=== PATIENT | female | born 1995 | race Caucasian/White ===

== ENCOUNTER 2020-07-09 15:50 | Inpatient (IN) | payer OTHER ==
--- NOTE | 2020-07-09 18:00 | HP ---
Past Medical History - Primary Care Physician PCP:: Kristie Cameron ([facility]) - Admission Chief Complaint: none History of Present Illness: pt. seen in [facility] today for PNC appointment. noted to have elevated [id number] so sent to L&D for evaluation. denies CHAVEZ, visual disturbances, epigastric pain. no contractions, leaking or bleeding. +FM PNC signif for late registrant History Source: Patient Limitations to Obtaining History: Language Barrier (emergency medical technician phone used) - Past Medical History Gastrointestinal: Yes: Other (? umbilical hernia) ...: 2 ...Para: 1 - Past Surgical History Hx Myomectomy: No Hx Transabdominal Cerclage: No - Smoking History Smoking history: Never smoked Have you smoked in the past 12 months: No - Alcohol/Substance Use Hx Alcohol Use: No History of Substance Use: reports: None Home Medications - Allergies Allergies/Adverse Reactions: Allergies Allergy/AdvReac Type Severity Reaction Status Date / Time No Known Allergies Allergy Verified 07/09/20 17:59 Review of Systems Findings/Remarks: no complaints Physical Exam - Maternity Constitutional: Yes: Well Nourished, No Distress, Anxious (pt seems anxious sinc e arrival about possiblity of delivery (MD in clinic told her she may be induced because of blood pressure)) Cardiovascular: Yes: WNL Lungs: Clear to auscultation - Abdominal Exam/OB Fundal Height: 37 (7.5 lbs clinical efw) Number of Fetuses: Single Presentation: Vertex Contractions: No Monitor Mode: External Heart Rate (range): 130 Accelerations: Uniform Decelerations: None - Vaginal Exam/OB Vaginal Bleeding: No Speculum Exam: No Dilatation (cm): cl/l/p Presentation: Vertex/Position (bedside sono confirmed) - Labs Lab Results: O pos rubella immune vdrl nr hbsag nr hiv neg quantiferon neg gc neg chl neg gct 109 Problem List - Problems (1) Hypertension complicating in third trimester Problems reviewed: Yes Code(s): O16.3 - UNSPECIFIED MATERNAL HYPERTENSION, THIRD TRIMESTER Assessment/Plan iup at 37 weeks (by late sono, late registrant) with asymptomatic elev BP today in clinic sent to L&D for further evaluation and labs, etc. pt. appears anxious regarding possible induction nurse attempted to reassure using phone translation will get labs and serial BPs and review case with covering MD consignee to determine management plan. addendum BP 140s/80s at this time (transiently elevated at time nurse interviewing her) check serial BPs , closely monitor. bloodwork ok. 2+ protein on u/a bedside sono confirm vtx d/w Dr. Leone impression iup at term w suspected mild preeclampsia cervidil placed
[2020-07-09] MEDS ORDERED: DEXTROSE 5%-LACTATED RINGERS 1,000 ML IV SCH (18:15)
[2020-07-09 18:39] VITALS: BMI 32.1
[2020-07-09 19:37] LABS: BASO % 0.6 % (0-2.0); EOS % 0.1 % (0-4.5); HEMATOCRIT 34.9 % (32.4-45.2); HEMOGLOBIN 11.5 GM/dL (10.7-15.3); LYMPH % 34.6 % (8-40); MCH 29.1 pg (25.7-33.7); MCHC 32.9 g/dl (32.0-36.0); MEAN CELL VOLUME 88.6 fl (80-96); MEAN PLT VOLUME 8.9 fl (7.5-11.1); MONO % 5.2 % (3.8-10.2); NEUT % 59.5 % (42.8-82.8); PLATELET COUNT 194 K/MM3 (134-434); RBC 3.94 M/mm3 (3.60-5.2); RDW 15.9 % (11.6-15.6); RETICULOCYTES 1.29 % (0.5-1.5); WHITE BLOOD COUNT 7.3 K/mm3 (4.0-10.0)
[2020-07-09 19:42] LABS: INR 0.89 (0.83-1.09); PROTHROMBIN TIME (PATIENT) 10.5 SEC (9.7-13.0)
[2020-07-09 19:44] LABS: ACTIVATED PTT 27.9 SECONDS (25.2-36.5)
[2020-07-09 19:59] LABS: EPI CELLS >36 /uL (0-25.1); HYALINE CASTS 3 /uL (0-3.1); URINE APPEARANCE CLOUDY; URINE BACTERIA 3759 /uL (0-1359); URINE BILIRUBIN NEGATIVE (NEGATIVE); URINE COLOR YELLOW; URINE GLUCOSE (UA) NEGATIVE (NEGATIVE); URINE KETONE NEGATIVE (NEGATIVE); URINE LEUK ESTERASE 2+ (NEGATIVE); URINE NITRITE NEGATIVE (NEGATIVE); URINE PROTEIN 2+ (NEGATIVE); URINE RBC 9 /uL (0-23.9); URINE WBC 466 /uL (0-25.8)
[2020-07-09 20:02] LABS: ALBUMIN 2.6 g/dl (3.4-5.0); BILIRUBIN,TOTAL 0.2 mg/dL (0.2-1); BLOOD UREA NITROGEN 8.8 mg/dL (7-18); CALCIUM 8.4 mg/dL (8.5-10.1); CREATININE 0.6 mg/dL (0.55-1.3); POTASSIUM 4.5 mmol/L (3.5-5.1); TOT PROT 6.4 g/dl (6.4-8.2); URIC ACID 5.2 mg/dL (2.6-7.2)
[2020-07-09] MEDS ORDERED: DINOPROSTONE 10 MG VAGINAL SUPPOSITORY VG ONE (20:13)
[2020-07-09] MEDS ORDERED: MAGNESIUM SULFATE 20GM/500ML - 20 GM/500 ML INFUS.BAG ONE (23:45)
[2020-07-09] MEDS ORDERED: MAGNESIUM 4GM/H20 - 4 GM/100 ML IVPB IVPB ONE (23:45)
[2020-07-10] MEDS ORDERED: LABETALOL HCL 5 MG/1 ML (100MG/20 ML VIAL) ONE (00:19)
[2020-07-10] MEDS ORDERED: FENTANYL/BUPIVACAINE/NS/PF - PCEA - 50 ML DISP.SYRIN EP ONE (00:27)
[2020-07-10] MEDS ORDERED: PCA PUMP NR ONE (00:27)
[2020-07-10] MEDS ORDERED: BUPIVACAINE HCL/PF 0.25% (2.5MG/ML) 10 ML VIAL ONE ×2 (00:29→01:31)
[2020-07-10] MEDS: FENTANYL/BUPIVACAINE/NS/PF - PCEA - 50 ML DISP.SYRIN EP SCH (00:40)
[2020-07-10] MEDS ORDERED: AMPICILLIN - 2 GM in SODIUM CHLORIDE 100 ML IVPB ONE (00:55)
[2020-07-10] MEDS ORDERED: NALOXONE HCL 0.4 MG/ML VIAL IVPUSH PRN (00:55)
--- NOTE | 2020-07-10 00:55 | PN ---
Progress Note (short form) - Note Progress Note: IUP @ 37w5 by dates ,IOL for preeclampsia Called by nurse with elevated BP. Magnesium 4gm bolus then 2 gm/hr BP-161/102,172/99,190/121, Repeat after IV labatelol- 141/96 Will consider starting PO labetolol VE- 3cm/50%/0, cervidil removed,intact FHR 140, moderate variability, positive accelerations, no decelerations, cat1 Purcell- q1-3 min labatelol 20mg IV push x1 given Epidural for pain management Ampicillin for GBS prophylaxis anticipate vaginal delivery Mag level q 6hrs
[2020-07-10] MEDS ORDERED: AMPICILLIN SODIUM 2 GM VIAL ONE ×2 (01:01→04:42)
[2020-07-10] MEDS ORDERED: LABETALOL HCL 200 MG TABLET (FP) ONE ×3 (01:01→22:09)
[2020-07-10] MEDS ORDERED: LABETALOL HCL 200 MG TABLET (FP) PO ONE (01:09)
[2020-07-10] MEDS: OXYTOCIN 20 UNITS in 0.9% NS 20 UNIT/1,000 ML INFUS.BAG IV SCH ×2 (01:36→21:05)
[2020-07-10] MEDS ORDERED: OXYTOCIN 20 UNITS in 0.9% NS 20 UNIT/1,000 ML INFUS.BAG IV ONE ×4 (01:36→21:07)
[2020-07-10] MEDS ORDERED: LIDOCAINE HCL 1% PRESERVATIVE FREE - 30ML VIAL ONE (01:48)
--- NOTE | 2020-07-10 02:11 | PN ---
Delivery - Delivery Type of Anesthesia: Local, Epidural Episiotomy/Laceration: None EBL (cc): 300 Delivery, Single - Stages of Labor Date of Delivery: 07/10/20 Date Placenta Delivered: 07/10/20 Placenta: Yes: Spontaneous - Condition of Infant Gender: Male - Feeding Plan Initial Plan: Exclusive throughout hospitalization Remarks - Remarks Remarks: Patient progressed from 3 cm to full dilation. 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 cord clamped and cut by me, cord gases sent, cord blood sent. Pitocin started.First degree midline perineal laceration repaired with 2.0 vicryl. Hemostasis confirmed. continue magnesium sulfate. Monitor BP closely
[2020-07-10] MEDS ORDERED: BISACODYL 10 MG SUPP.RECT RC PRN (02:12)
[2020-07-10] MEDS ORDERED: BENZOCAINE 28 GM HEMORRHOIDAL OINTMENT TP PRN (02:12)
[2020-07-10] MEDS ORDERED: WITCH HAZEL 50% (TUCKS) 40 PAD/JAR PAD TP PRN (02:12)
[2020-07-10] MEDS ORDERED: BENZOCAINE 20% 57 GM BOTTLE TP PRN (02:12)
[2020-07-10] MEDS ORDERED: ACETAMINOPHEN 1000 MG/100 ML VIAL (NON FORMULARY) IVPB ONE (02:14)
[2020-07-10] MEDS ORDERED: LABETALOL HCL 5 MG/1 ML (100MG/20 ML VIAL) IVPUSH ONE (02:22)
[2020-07-10] MEDS ORDERED: MAGNESIUM SULFATE 20GM/500ML - 20 GM/500 ML INFUS.BAG IVPB SCH ×2 (02:30→06:20)
[2020-07-10] MEDS ORDERED: MAGNESIUM 4GM/H20 - 4 GM/100 ML IVPB IVPB SCH (02:30)
[2020-07-10] MEDS ORDERED: ACETAMINOPHEN 325 MG TABLET (FP) PO ONE (02:45)
[2020-07-10] MEDS ORDERED: oxyCODONE HCL 5 MG TABLET PO ONE (02:45)
[2020-07-10] MEDS: AMPICILLIN - 1 GM in SODIUM CHLORIDE 100 ML IVPB SCH ×3 (06:10→17:26)
[2020-07-10] MEDS ORDERED: ACETAMINOPHEN 325 MG TABLET (FP) ONE ×2 (07:25→16:50)
[2020-07-10] MEDS: ACETAMINOPHEN 325 MG TABLET (FP) PO PRN ×2 (07:40→17:00)
[2020-07-10] MEDS ORDERED: LABETALOL HCL 100 MG TABLET (FP) PO SCH (10:00)
[2020-07-10] MEDS: LABETALOL HCL 200 MG TABLET (FP) PO SCH ×2 (10:15→22:00)
[2020-07-10] MEDS ORDERED: IBUPROFEN 600 MG TABLET (FP) PO ONE (16:49)
[2020-07-10] MEDS: IBUPROFEN 600 MG TABLET (FP) PO PRN (17:00)
[2020-07-10] MEDS ORDERED: MAGNESIUM SULFATE 20GM/500ML - 20 GM/500 ML INFUS.BAG ONE (19:23)
--- NOTE | 2020-07-10 19:43 | PN ---
Progress Note (short form) - Note Progress Note: S/P today preeclampsia on Mg Sulfate 1 gm/hour Labetolol 200 mg po BID BP stable 119/78 Mg level 4.5 I/O 2086/2649 discontinue at 24 hours transfer to maternity floor
[2020-07-11] MEDS ORDERED: GENTAMICIN SO4 80 MG/2 ML VIAL ONE (00:53)
[2020-07-11 08:09] LABS: BASO % 0.3 % (0-2.0); EOS % 0.8 % (0-4.5); HEMATOCRIT 29.2 % (32.4-45.2); HEMOGLOBIN 9.7 GM/dL (10.7-15.3); LYMPH % 32.9 % (8-40); MCH 29.3 pg (25.7-33.7); MCHC 33.3 g/dl (32.0-36.0); MEAN PLT VOLUME 8.3 fl (7.5-11.1); MONO % 6.1 % (3.8-10.2); NEUT % 59.9 % (42.8-82.8); PLATELET COUNT 158 K/MM3 (134-434); RBC 3.32 M/mm3 (3.60-5.2); RDW 16.4 % (11.6-15.6); WHITE BLOOD COUNT 8.8 K/mm3 (4.0-10.0)
[2020-07-11 08:23] LABS: ALBUMIN 1.8 g/dl (3.4-5.0); BILIRUBIN,TOTAL 0.2 mg/dL (0.2-1); BLOOD UREA NITROGEN 6.6 mg/dL (7-18); CREATININE 0.5 mg/dL (0.55-1.3); POTASSIUM 4.4 mmol/L (3.5-5.1); TOT PROT 4.8 g/dl (6.4-8.2)
[2020-07-11] MEDS: ACETAMINOPHEN 325 MG TABLET (FP) PO PRN (09:02)
[2020-07-11 09:03] LABS: CALCIUM 6.8 mg/dL (8.5-10.1)
[2020-07-11] MEDS: LABETALOL HCL 200 MG TABLET (FP) PO SCH ×2 (09:43→21:21)
--- NOTE | 2020-07-11 10:56 | PN ---
Post Progress Note - Subjective Subjective: S/P , PIH, completed Magnesiun sulfate this morning c/o CHAVEZ in Am, feeling better after motrin intake Type of Delivery: Vital Signs: Vital Signs Temperature 98.2 F 07/11/20 10:05 Pulse Rate 85 07/11/20 10:05 Respiratory Rate 20 07/11/20 10:05 Blood Pressure 126/79 07/11/20 10:05 O2 Sat by Pulse Oximetry (%) 98 07/11/20 04:00 Breast Exam: Yes: Soft Uterus: Yes: Fundus Firm Abdomen/GI: Yes: Abdomen soft Lochia: Yes: Rubra Lochia, amount: Small Extremities: Yes: Calves non-tender Perineum: Yes: Intact Activity: Ambulating - Labs Labs: CBC WBC 8.8 K/mm3 (4.0-10.0) 07/11/20 07:40 RBC 3.32 M/mm3 (3.60-5.2) L 07/11/20 07:40 Hgb 9.7 GM/dL (10.7-15.3) L 07/11/20 07:40 Hct 29.2 % (32.4-45.2) L D 07/11/20 07:40 MCV 88.0 fl (80-96) 07/11/20 07:40 MCH 29.3 pg (25.7-33.7) 07/11/20 07:40 MCHC 33.3 g/dl (32.0-36.0) 07/11/20 07:40 RDW 16.4 % (11.6-15.6) H 07/11/20 07:40 Plt Count 158 K/MM3 (134-434) 07/11/20 07:40 MPV 8.3 fl (7.5-11.1) 07/11/20 07:40 Absolute Neuts (auto) 5.3 K/mm3 (1.5-8.0) 07/11/20 07:40 Neutrophils % 59.9 % (42.8-82.8) 07/11/20 07:40 Lymphocytes % 32.9 % (8-40) 07/11/20 07:40 Monocytes % 6.1 % (3.8-10.2) 07/11/20 07:40 Eosinophils % 0.8 % (0-4.5) D 07/11/20 07:40 Basophils % 0.3 % (0-2.0) 07/11/20 07:40 Nucleated RBC % 0 % (0-0) 07/11/20 07:40 Retic Count 1.29 % (0.5-1.5) 07/09/20 18:30 Haptoglobin 99 mg/dL (33-278) 07/09/20 18:30 Assessment/Plan Ambulating Breast feeding encourage Rpt cbc, cmp in AM
[2020-07-11] MEDS ORDERED: SENNOSIDES/DOCUSATE COMBO (SENNA PLUS) TABLET (UD) PO PRN (22:00)
[2020-07-11] MEDS: FENTANYL/BUPIVACAINE/NS/PF - PCEA - 50 ML DISP.SYRIN EP SCH (22:40)
[2020-07-12] MEDS: ACETAMINOPHEN 325 MG TABLET (FP) PO PRN (01:57)
[2020-07-12] MEDS: IBUPROFEN 600 MG TABLET (FP) PO PRN (01:58)
[2020-07-12 08:22] LABS: BASO % 0.4 % (0-2.0); EOS % 1.1 % (0-4.5); HEMATOCRIT 25.9 % (32.4-45.2); HEMOGLOBIN 8.7 GM/dL (10.7-15.3); LYMPH % 30.8 % (8-40); MCH 29.7 pg (25.7-33.7); MCHC 33.6 g/dl (32.0-36.0); MEAN CELL VOLUME 88.4 fl (80-96); MEAN PLT VOLUME 8.2 fl (7.5-11.1); NEUT % 60.7 % (42.8-82.8); PLATELET COUNT 181 K/MM3 (134-434); RBC 2.93 M/mm3 (3.60-5.2); RDW 16.5 % (11.6-15.6)
[2020-07-12 08:49] LABS: ALBUMIN 2.1 g/dl (3.4-5.0); BILIRUBIN,TOTAL 0.2 mg/dL (0.2-1); CALCIUM 8.1 mg/dL (8.5-10.1); CREATININE 0.6 mg/dL (0.55-1.3); POTASSIUM 4.2 mmol/L (3.5-5.1); TOT PROT 5.2 g/dl (6.4-8.2)
[2020-07-12 09:02] LABS: BLOOD UREA NITROGEN 11.8 mg/dL (7-18)
[2020-07-12] MEDS: LABETALOL HCL 200 MG TABLET (FP) PO SCH (09:34)
[2020-07-12 10:08] VITALS: BP 146/82; PULSE 97; TEMP 98.4
--- NOTE | 2020-07-12 11:31 | DS ---
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 Vital Signs: Vital Signs Temperature 98.4 F 07/12/20 10:00 Pulse Rate 97 H 07/12/20 10:00 Respiratory Rate 18 07/12/20 10:00 Blood Pressure 146/82 07/12/20 10:00 O2 Sat by Pulse Oximetry (%) 98 07/11/20 14:34 Constitutional: Yes: No Distress Cardiovascular: Yes: Regular Rate and Rhythm Respiratory: Yes: Regular Gastrointestinal: Yes: Normal Bowel Sounds ....Post : Yes: Uterus firm Labs: CBC, BMP 07/12/20 07:15 07/12/20 07:15 Delivery - Delivery Type of Anesthesia: Local, Epidural Episiotomy/Laceration: None EBL (cc): 300 Delivery, Single - Stages of Labor Date 1st Stage Initiatied: 07/10/20 Time 1st Stage Initiated: 20:00 Date 2nd Stage Initiated: 07/10/20 Time 2nd Stage Initiated: 00:30 Date of Delivery: 07/10/20 Time of Delivery: 01:32 Time Placenta Delivered: 01:35 Placenta: Yes: Spontaneous - Condition of Infant 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 Present: No Infant Gender: Male Weight: 2.495 kg Position: Left, OA Total Hours ROM (Hrs/Mins): 3 mins - 1 Minute Total Score: 9 5 Minutes Total Score: 9 - [place] Feeding Plan Initial Plan: Exclusive throughout hospitalization Remarks - Remarks Remarks: s/p magnesium sulfate, on labetalol Discharge Summary Problems reviewed: Yes Reason For Visit: LABOR ADMIT Current Active Problems Hypertension complicating in third trimester (Acute) Hospital Course: 1st degree lac, magnesium sulfate, preeclampsia precautions discussed Plan of Treatment: labetalol, vitamins Condition: Good - Instructions Referrals: Mp Boo MD [Staff Physician] - - Home Medications Comprehensive Discharge Medication List: Ambulatory Orders Labetalol HCl [Normodyne -] 100 mg PO BID #60 tablet 07/12/20
== END 2020-07-12 17:30 | disposition home or self-care (01) | DRG 560 ==
LOC: JDEL 15:50 → JLDR 18:29 → J3W 07-11 05:09
PROVIDERS: ADMIT Obstetrics & Gynecology; ATTEND Obstetrics & Gynecology
PROC: 3E0P7VZ Introduction of Hormone into Female Reproductive, Via Natural or Artificial Opening (ICD-10-PCS; principal; 2020-07-09)
PROC: 10E0XZZ Delivery of Products of Conception, External Approach (ICD-10-PCS; 2020-07-10)
PROC: 0HQ9XZZ Repair Perineum Skin, External Approach (ICD-10-PCS; 2020-07-10)
DX: O16.3 Unspecified maternal hypertension, third trimester (principal); O70.0 First degree perineal laceration during delivery; Z3A.37 37 weeks gestation of pregnancy; Z37.0 Single live birth
CPT/HCPCS: 36415; 59409; 80053; 81003; 82977; 83010; 83735; 84550; 85025; 85045; 85610; 85730; 86850; 86900; 86901; U0003